=== PATIENT | female | born 1930 | race Caucasian/White ===

== ENCOUNTER 2021-05-06 10:17 | Emergency (ER) | payer MEDICARE, BC ==
[~2021-05-06] VITALS: Ht 167.6 cm; Wt 61.4 kg
[~2021-05-06 10:17] MED LIST: ALEVE LIQCAPS PO; ALLEGRA 60MG TA60 MG PO; ASPIRIN 81M81 MG/TA2 PO; CEFTIN500 MG PO; DESYREL 50MG50 MG PO; LEVOXYL0.075 MG PO; MIRALAX PA17 GM/Dose PO; PRESERVISION1 SGL PO; SENNA-LAX8.6 MG PO; SINEMET 25/101 UDTAB PO; SYMMETREL100 M1 PO
[2021-05-06 10:24] VITALS: TEMP 98.3
[2021-05-06 11:05] LABS: BASO # 0.1 (0.0-0.2); BASO % 0.9 % (0.0-2.0); EOS # 0.4 (0.0-0.7); EOS % 4.7 % (0-4.0); GRAN # 5.8 (1.4-6.5); GRAN % 72.7 % (42.2-75.2); HEMATOCRIT 43.5 % (37.0-47.0); HEMOGLOBIN 14.2 g/dl (12.5-16.0); LYMPH # 1.2 (1.2-3.4); LYMPH % 15.1 % (20.0-51.0); MEAN CELL VOLUME 93 fl (80.0-100.0); MEAN CORPUSCULAR HEMOGLOBIN 30 pg (27.0-31.0); MEAN CORPUSCULAR HGB CONC 33 g/dl (33.0-37.0); MEAN PLATELET VOLUME 9.6 fl (7.4-10.4); MONO # 0.5 (0.1-0.6); MONO % 6.2 % (1.7-9.3); PLATELET COUNT 294 K/mm3 (130-400); RED BLOOD COUNT 4.69 M/mm3 (4.10-5.30); REDCELL DISTRIBUTION WIDTH-CV 12.4 % (11.5-14.5)
[2021-05-06 11:15] LABS: ALANINE AMINOTRANSFERASE 11 U/L (4-34); ALBUMIN 4.1 gm/dL (3.5-5.0); ALKALINE PHOSPHATASE 83 U/L (50-136); ANION GAP 8 mmol/L (7-16); AST,SGOT 20 U/L (15-37); BILIRUBIN,TOTAL 0.4 mg/dL (0.0-1.0); BLOOD UREA NITROGEN 16 mg/dL (7-17); CALCIUM 9.3 mg/dL (8.4-10.2); CARBON DIOXIDE 24 mmol/L (22-30); CHLORIDE 105 mmol/L (98-107); CREATININE, serum 0.75 (0.52-1.25); GLUCOSE 89 mg/dL (74-106); POTASSIUM 3.8 mmol/L (3.4-5.0); SODIUM 138 mmol/L (137-145); TOTAL PROTEIN 7.8 gm/dL (6.4-8.2)
[2021-05-06 11:27] LABS: TROPONIN-I < 0.012 ng/mL (0.000-0.035)
[2021-05-06 12:51] VITALS: BP 150/68; PULSE 80
== END 2021-05-06 13:00 | disposition home or self-care (01) ==
LOC: COL.ER 10:17
PROVIDERS: Student in an Organized Health Care Education/Training Program
DX: S09.90XA Unspecified injury of head, initial encounter (principal); S01.81XA Laceration without foreign body of other part of head, initial encounter; R55 Syncope and collapse; G20 Parkinson's disease; Z79.899 Other long term (current) drug therapy; W18.30XA Fall on same level, unspecified, initial encounter; Y93.01 Activity, walking, marching and hiking
CPT/HCPCS: J7030